=== PATIENT | female | born 1970 | race Caucasian/White ===

== ENCOUNTER 2018-04-11 20:33 | Emergency (ER) | payer MEDICAID ==
[~2018-04-11] VITALS: Ht 162.6 cm; Wt 116.0 kg
[~2018-04-11 20:33] MED LIST: CLOT15CR5 TOP; HYDR-569 PO; MYCOL15CR TP; NYST15OI14 TP
[2018-04-11 21:24] VITALS: BP 132/78
[2018-04-11] MEDS ORDERED: FLUC150T66 PO (22:51)
[2018-04-11] MEDS ORDERED: MYCOL30CR TP (22:51)
== END 2018-04-11 23:03 | disposition home or self-care (01) ==
LOC: ER 20:34
DX: B37.9 Candidiasis, unspecified (principal); M19.90 Unspecified osteoarthritis, unspecified site; Z79.899 Other long term (current) drug therapy
CPT/HCPCS: 99283

== ENCOUNTER 2018-07-20 08:39 | Emergency (ER) | payer MEDICAID ==
[~2018-07-20] VITALS: Ht 162.6 cm; Wt 118.2 kg
[~2018-07-20 08:39] MED LIST changes: +HYDR-4383 PO; -HYDR-569 PO; +MYCOL30CR TP
[2018-07-20 08:40] VITALS: BP 140/98
[2018-07-20 09:08] LABS: CLARITY,URINE CLOUDY (Clear); GLUCOSE, URINE NEGATIVE (Neg); KETONES,URINE TRACE mg/dl (Neg); LEUKOCYTE ESTERASE ,URINE TRACE (Neg); NITRITES, URINE NEGATIVE (Neg); OCCULT BLOOD,URINE SMALL (Neg); PH,URINE 5.5 (4.8-8.0); PROTEIN,URINE 30 mg/dl (Neg); UROBILINOGEN,URINE 0.2 E.U/dL (0.2-1.0)
[2018-07-20 09:09] LABS: COLOR,URINE DARK YELLOW (Yellow); UA COLLECTION TYPE CLN CATCH MIDSTREAM
[2018-07-20 09:12] LABS: URINE HCG NEGATIVE (NEG)
[2018-07-20 09:14] LABS: BACTERIA,URINE 3+ /HPF (Neg); SQUAMOUS EPITHELIAL CELL,UR MANY /LPF (FEW); WBC,URINE 50-100 /HPF (0-4)
[2018-07-20 09:15] LABS: MUCUS STRANDS MODERATE /LPF (Neg); WBC CLUMPS,URINE FEW /HPF (NEGATIVE)
[2018-07-20] MEDS ORDERED: CEPH-572 PO (09:21)
[2018-07-20] MEDS ORDERED: PHEN-824 PO (10:12)
== END 2018-07-20 09:39 | disposition home or self-care (01) ==
LOC: ER 08:39
DX: N39.0 Urinary tract infection, site not specified (principal); M19.90 Unspecified osteoarthritis, unspecified site; Z79.2 Long term (current) use of antibiotics
CPT/HCPCS: 81001; 81025; 99283

== ENCOUNTER 2018-08-06 07:15 | Emergency (ER) | payer MEDICAID ==
[~2018-08-06] VITALS: Ht 165.1 cm; Wt 118.2 kg
[~2018-08-06 07:15] MED LIST changes: +PHEN-824 PO
[2018-08-06] MEDS ORDERED: TRIA15CR62 TP (07:50)
[2018-08-06 07:58] VITALS: BP 136/95
== END 2018-08-06 08:00 | disposition home or self-care (01) ==
LOC: ER 07:16
DX: L30.9 Dermatitis, unspecified (principal); M19.90 Unspecified osteoarthritis, unspecified site; Z79.899 Other long term (current) drug therapy
CPT/HCPCS: 99283

== ENCOUNTER 2019-11-05 23:33 | Emergency (ER) | payer MEDICAID ==
[~2019-11-05] VITALS: Ht 162.6 cm; Wt 117.6 kg
[2019-11-05 23:39] VITALS: BP 111/75
[2019-11-06] MEDS ORDERED: KEN0.1O TP (00:25)
== END 2019-11-06 00:58 | disposition home or self-care (01) ==
LOC: ER 23:34
DX: R21 Rash and other nonspecific skin eruption (principal); L29.9 Pruritus, unspecified; M19.90 Unspecified osteoarthritis, unspecified site; Z87.442 Personal history of urinary calculi; Z87.440 Personal history of urinary (tract) infections; Z79.2 Long term (current) use of antibiotics; Z79.899 Other long term (current) drug therapy
CPT/HCPCS: 99283

== ENCOUNTER 2020-07-17 09:44 | Emergency (ER) | payer MEDICAID ==
[~2020-07-17] VITALS: Ht 162.6 cm; Wt 108.6 kg
[~2020-07-17 09:44] MED LIST changes: +CLOT15CR35 TOP; -CLOT15CR5 TOP
[2020-07-17 10:41] LABS: URINE HCG NEGATIVE (NEG)
[2020-07-17 10:44] LABS: CLARITY,URINE SLIGHTLY CLOUDY (Clear); COLOR,URINE YELLOW (Yellow); GLUCOSE, URINE NEGATIVE (Neg); KETONES,URINE 15 mg/dl (Neg); LEUKOCYTE ESTERASE ,URINE NEGATIVE (Neg); NITRITES, URINE NEGATIVE (Neg); OCCULT BLOOD,URINE NEGATIVE (Neg); PH,URINE 5.5 (4.8-8.0); PROTEIN,URINE NEGATIVE (Neg); UROBILINOGEN,URINE 0.2 E.U/dL (0.2-1.0)
[2020-07-17 10:47] LABS: UA COLLECTION TYPE CLN CATCH MIDSTREAM
[2020-07-17 10:48] LABS: BACTERIA,URINE NONE SEEN /HPF (Neg); MUCUS STRANDS MODERATE /LPF (Neg); RBC,URINE 0-2 /HPF (0-2); SQUAMOUS EPITHELIAL CELL,UR MODERATE /LPF (FEW); WBC,URINE 0-4 /HPF (0-4)
[2020-07-17 11:12] LABS: BASOPHILS % (AUTO) 0.6 % (0-1); EOSINOPHILS # (AUTO) 0.1 X10'3 (0-0.9); EOSINOPHILS % (AUTO) 1.3 % (0-6); HEMATOCRIT 41.2 % (35.0-45.0); HEMOGLOBIN 14.1 g/dl (12.0-16.0); LYMPHOCYTES # (AUTO) 1.4 X10'3 (1.1-4.8); LYMPHOCYTES % (AUTO) 19.6 % (21-51); MEAN CORPUSCULAR HEMOGLOBIN 34.9 PG (27.0-31.0); MEAN CORPUSCULAR HGB CONC 34.3 g/dL (33.0-36.5); MEAN CORPUSCULAR VOLUME 101.8 FL (78-98); MEAN PLATELET VOLUME 9.3 FL (7.4-10.4); MONOCYTES # (AUTO) 0.6 X10'3 (0-0.9); MONOCYTES % (AUTO) 8.2 % (2-12); NEUTROPHILS # (AUTO) 4.9 X10'3 (1.8-7.7); NEUTROPHILS % (AUTO) 70.3 % (42-75); PLATELET COUNT 237 X10'3 (140-440); RED BLOOD COUNT 4.05 X10'6 (4.20-5.60); RED CELL DISTRIBUTION WIDTH 13.1 % (11.5-14.5); WHITE BLOOD COUNT 6.9 X10'3 (4.5-11.0)
[2020-07-17 11:29] LABS: ALANINE AMINOTRANSFERASE 40 U/L (12-78); ALBUMIN 3.5 G/DL (3.4-5.0); ALBUMIN/GLOBULIN RATIO 1.1 (1.1-1.5); ALKALINE PHOSPHATASE 67 IU/L (46-116); ANION GAP 6 (8-16); ASPARTATE AMINO TRANSFERASE 21 U/L (10-37); BILIRUBIN,TOTAL 0.3 MG/DL (0.1-1.0); BLOOD UREA NITROGEN 16 MG/DL (7-18); BUN/CREATININE RATIO 19.5 (6.6-38.0); CALCIUM 8.5 MG/DL (8.5-10.1); CHLORIDE 107 MMOL/L (99-107); CREATININE 0.82 MG/DL (0.40-0.90); GLUCOSE 84 MG/DL (70-104); LIPASE 76 U/L (73-393); POTASSIUM 4.2 MMOL/L (3.5-5.1); SODIUM 141 MMOL/L (135-145); TOTAL CARBON DIOXIDE 27.9 MMOL/L (24-32); TOTAL PROTEIN 6.7 G/DL (6.4-8.2); eGFR 75 ML/MIN
[2020-07-17 12:23] VITALS: BP 128/85
== END 2020-07-17 12:25 | disposition home or self-care (01) ==
LOC: ER 09:45
DX: K42.9 Umbilical hernia without obstruction or gangrene (principal); M19.90 Unspecified osteoarthritis, unspecified site; Z87.442 Personal history of urinary calculi; Z79.899 Other long term (current) drug therapy
CPT/HCPCS: 36415; 74176; 80053; 81001; 81025; 83605; 83690; 85025; 99284

== ENCOUNTER 2021-09-04 12:51 | Emergency (ER) | payer MEDICAID ==
[~2021-09-04] VITALS: Ht 162.6 cm; Wt 109.0 kg
[2021-09-04 13:07] VITALS: BP 115/71
[2021-09-04] MEDS ORDERED: ketorolac trometh. 30mg/ml inj. IV ONE (14:30)
[2021-09-04] MEDS ORDERED: IBUP-1984 PO (14:33)
--- NOTE | 2021-09-04 14:56 | NUR ---
Pt given and understands d/c instructions. Ambulatory with a steady gait.
== END 2021-09-04 14:57 | disposition home or self-care (01) ==
LOC: ER 12:51
DX: M25.531 Pain in right wrist (principal); Z87.442 Personal history of urinary calculi; Z79.899 Other long term (current) drug therapy
CPT/HCPCS: 73090; 73110; 96374; 99284; J1885

== ENCOUNTER 2021-10-11 22:34 | Emergency (ER) | payer MEDICAID ==
[~2021-10-11] VITALS: Ht 162.6 cm; Wt 105.0 kg
[2021-10-11 23:33] LABS: BASOPHILS % (AUTO) 0.4 % (0-1); EOSINOPHILS % (AUTO) 0.3 % (0-6); HEMATOCRIT 41.7 % (35.0-45.0); HEMOGLOBIN 14.5 g/dl (12.0-16.0); LYMPHOCYTES % (AUTO) 11.6 % (21-51); MEAN CORPUSCULAR HEMOGLOBIN 34.1 PG (27.0-31.0); MEAN CORPUSCULAR HGB CONC 34.8 g/dL (33.0-36.5); MEAN PLATELET VOLUME 9.4 FL (7.4-10.4); MONOCYTES # (AUTO) 0.6 X10'3 (0-0.9); NEUTROPHILS # (AUTO) 6.6 X10'3 (1.8-7.7); NEUTROPHILS % (AUTO) 80.7 % (42-75); PLATELET COUNT 197 X10'3 (140-440); RED BLOOD COUNT 4.26 X10'6 (4.20-5.60); RED CELL DISTRIBUTION WIDTH 13.2 % (11.5-14.5); WHITE BLOOD COUNT 8.2 X10'3 (4.5-11.0)
[2021-10-11 23:47] LABS: ALANINE AMINOTRANSFERASE 21 U/L (12-78); ALBUMIN 3.6 G/DL (3.4-5.0); ALBUMIN/GLOBULIN RATIO 1.2 (1.1-1.5); ALKALINE PHOSPHATASE 62 IU/L (46-116); ANION GAP 12 (8-16); ASPARTATE AMINO TRANSFERASE 11 U/L (10-37); BILIRUBIN,TOTAL 0.4 MG/DL (0.1-1.0); BLOOD UREA NITROGEN 21 MG/DL (7-18); BUN/CREATININE RATIO 27.6 (6.6-38.0); CALCIUM 8.6 MG/DL (8.5-10.1); CHLORIDE 103 MMOL/L (99-107); CREATININE 0.76 MG/DL (0.40-0.90); GLUCOSE 117 MG/DL (70-104); LIPASE 68 U/L (73-393); POTASSIUM 4.6 MMOL/L (3.5-5.1); SODIUM 138 MMOL/L (135-145); TOTAL CARBON DIOXIDE 23.5 MMOL/L (24-32); TOTAL PROTEIN 6.7 G/DL (6.4-8.2); eGFR 81 ML/MIN
[2021-10-11 23:55] LABS: CLARITY,URINE CLEAR (Clear); COLOR,URINE YELLOW (Yellow); GLUCOSE, URINE NEGATIVE (Neg); KETONES,URINE NEGATIVE (Neg); LEUKOCYTE ESTERASE ,URINE NEGATIVE (Neg); NITRITES, URINE NEGATIVE (Neg); OCCULT BLOOD,URINE NEGATIVE (Neg); PH,URINE 5.5 (4.8-8.0); PROTEIN,URINE NEGATIVE (Neg); UROBILINOGEN,URINE 0.2 E.U/dL (0.2-1.0)
[2021-10-11 23:57] LABS: URINE HCG NEGATIVE (NEG)
[2021-10-12 00:08] LABS: UA COLLECTION TYPE CLN CATCH MIDSTREAM
[2021-10-12] MEDS ORDERED: ondansetron/PF 4mg/2ml inj IV ONE (00:30)
[2021-10-12] MEDS ORDERED: normal saline 1000ml 1,000 ML IV ONE (00:30)
[2021-10-12] MEDS ORDERED: ONDA4TAB12 PO (01:09)
[2021-10-12] MEDS ORDERED: proCHLORperazine 10 MG/2 ml inj IV ONE ×2 (01:20→01:25)
[2021-10-12 03:10] VITALS: BP 122/74
== END 2021-10-12 03:12 | disposition home or self-care (01) ==
LOC: ER 22:36
DX: K92.1 Melena (principal); R19.7 Diarrhea, unspecified; R11.2 Nausea with vomiting, unspecified; R10.84 Generalized abdominal pain; M19.90 Unspecified osteoarthritis, unspecified site; Z87.442 Personal history of urinary calculi; Z87.440 Personal history of urinary (tract) infections; Z79.899 Other long term (current) drug therapy
CPT/HCPCS: 36415; 80053; 81003; 81025; 83690; 85025; 96361; 96374; 96375; 99285; J0780; J2405; J7030

== ENCOUNTER 2022-05-31 01:22 | Emergency (ER) | payer MEDICAID ==
[~2022-05-31] VITALS: Ht 162.6 cm; Wt 95.5 kg
[~2022-05-31 01:22] MED LIST changes: -MYCOL15CR TP; -MYCOL30CR TP; +NYST15CR37 TP; +NYST30CR35 TP; +ONDA4TAB12 PO
[2022-05-31 01:33] VITALS: BP 108/66
[2022-05-31] MEDS ORDERED: ketorolac trometh inj. 60 MG/2 ML VIAL IM ONE (04:40)
== END 2022-05-31 04:56 | disposition home or self-care (01) ==
LOC: ER 01:23
DX: M25.562 Pain in left knee (principal); M19.90 Unspecified osteoarthritis, unspecified site; Z87.442 Personal history of urinary calculi; Z87.440 Personal history of urinary (tract) infections; Z79.2 Long term (current) use of antibiotics; Z79.899 Other long term (current) drug therapy
CPT/HCPCS: 96372; 99283; J1885

== ENCOUNTER 2022-09-03 08:35 | Emergency (ER) | payer MEDICAID ==
[~2022-09-03] VITALS: Ht 162.6 cm; Wt 95.5 kg
[2022-09-03 09:04] VITALS: BP 125/99
[2022-09-03] MEDS ORDERED: AMOX875T10 PO ×3 (10:04→12:10)
== END 2022-09-03 10:30 | disposition home or self-care (01) ==
LOC: ER 08:35
DX: H66.93 Otitis media, unspecified, bilateral (principal); R09.89 Other specified symptoms and signs involving the circulatory and respiratory systems; R51.9 Headache, unspecified; M19.90 Unspecified osteoarthritis, unspecified site
CPT/HCPCS: 99283

== ENCOUNTER 2022-12-26 22:21 | Emergency (ER) | payer MEDICAID ==
[~2022-12-26] VITALS: Ht 162.6 cm; Wt 100.0 kg
[~2022-12-26 22:21] MED LIST changes: +AMOX875T10 PO
[2022-12-26 22:23] VITALS: BP 144/98
[2022-12-26] MEDS ORDERED: amox tr/potassium clavulanate 875/125mg TAB PO ONE (22:50)
[2022-12-26] MEDS ORDERED: predniSONE 20 mg tablet PO ONE (22:50)
[2022-12-26] MEDS ORDERED: AMOX-117 PO (23:02)
[2022-12-26] MEDS ORDERED: PRED20TA PO (23:02)
[2022-12-26] MEDS ORDERED: DIPH25TA62 PO (23:03)
== END 2022-12-26 23:14 | disposition home or self-care (01) ==
LOC: ER 22:21
DX: H01.005 Unspecified blepharitis left lower eyelid (principal); H01.002 Unspecified blepharitis right lower eyelid; Z87.442 Personal history of urinary calculi; Z79.899 Other long term (current) drug therapy; Z79.1 Long term (current) use of non-steroidal anti-inflammatories (NSAID); Z79.2 Long term (current) use of antibiotics
CPT/HCPCS: 99283; J7512

== ENCOUNTER 2023-01-12 00:38 | Emergency (ER) | payer MEDICAID ==
[~2023-01-12] VITALS: Ht 162.6 cm; Wt 100.0 kg
[~2023-01-12 00:38] MED LIST changes: +DIPH25TA62 PO; +PRED20TA PO
[2023-01-12 00:39] VITALS: BP 114/72
[2023-01-12] MEDS ORDERED: clobetasol propionate ointment 15gm TP STA (02:56)
== END 2023-01-12 03:09 | disposition home or self-care (01) ==
LOC: ER 00:38
DX: R21 Rash and other nonspecific skin eruption (principal); M19.90 Unspecified osteoarthritis, unspecified site
CPT/HCPCS: 99282

== ENCOUNTER 2023-02-17 01:39 | Emergency (ER) | payer BC, MEDICAID ==
[~2023-02-17] VITALS: Ht 162.6 cm; Wt 106.0 kg
[~2023-02-17 01:39] MED LIST changes: -PRED20TA PO
[2023-02-17 01:41] VITALS: BP 125/91; PULSE 82; RESP 18; TEMP 97; O2SAT 98
== END 2023-02-17 03:35 | disposition left against medical advice (07) ==
LOC: ER 01:39
DX: R21 Rash and other nonspecific skin eruption (principal); K13.0 Diseases of lips; Z53.21 Procedure and treatment not carried out due to patient leaving prior to being seen by health care provider
CPT/HCPCS: 99281

== ENCOUNTER 2024-06-02 23:14 | Emergency (ER) | payer BC, MEDICAID ==
[~2024-06-02] VITALS: Ht 162.6 cm; Wt 124.7 kg
[~2024-06-02 23:14] MED LIST changes: +ONDA-243 PO; -ONDA4TAB12 PO
[2024-06-02 23:17] VITALS: BP 136/98; PULSE 100; RESP 16; TEMP 98.4; O2SAT 97
[2024-06-03] MEDS ORDERED: CEPH-585 PO (00:09)
[2024-06-03] MEDS ORDERED: SULF1TAB49 PO (00:09)
[2024-06-03] MEDS ORDERED: DIF150T PO (00:09)
== END 2024-06-03 00:33 | disposition home or self-care (01) ==
LOC: ER 23:15
DX: L03.111 Cellulitis of right axilla (principal); M19.90 Unspecified osteoarthritis, unspecified site; Z79.2 Long term (current) use of antibiotics; Z79.899 Other long term (current) drug therapy; Z87.440 Personal history of urinary (tract) infections
CPT/HCPCS: 99284; A6258; A6449

== ENCOUNTER 2024-06-07 18:48 | Emergency (ER) | payer BC ==
[~2024-06-07] VITALS: Ht 162.6 cm; Wt 113.6 kg
[~2024-06-07 18:48] MED LIST changes: +CEPH-585 PO; +SULF1TAB49 PO
[2024-06-07] MEDS: VANCOMYCIN 1.75GM/WATER FOR INJ (PEG) 350 ML IVPB IV ONE (20:56)
[2024-06-07 22:46] VITALS: BP 93/50; PULSE 68; RESP 16; TEMP 98.7; O2SAT 98
[2024-06-08] MEDS: acetaminophen 325mg tablet PO ONE (00:12)
[2024-06-08] MEDS: ibuprofen tablet 400 MG TABLET PO ONE (00:13)
== END 2024-06-08 01:24 | disposition home or self-care (01) ==
LOC: ER 18:49
DX: L03.111 Cellulitis of right axilla (principal); L02.411 Cutaneous abscess of right axilla; M19.90 Unspecified osteoarthritis, unspecified site; Z79.899 Other long term (current) drug therapy; Z79.2 Long term (current) use of antibiotics; Z87.440 Personal history of urinary (tract) infections
CPT/HCPCS: 96365; 96366; 96376; 99284; J3372; J7050

== ENCOUNTER 2024-06-23 23:09 | Emergency (ER) | payer BC ==
[~2024-06-23] VITALS: Ht 162.6 cm; Wt 109.1 kg
[~2024-06-23 23:09] MED LIST changes: -CEPH-585 PO; -SULF1TAB49 PO
[2024-06-23 23:10] VITALS: BP 150/92; PULSE 95; RESP 18; O2SAT 96
[2024-06-23] MEDS ORDERED: RIFA300C65 PO (23:13)
[2024-06-23] MEDS ORDERED: AMOX-580 PO (23:13)
[2024-06-23] MEDS: amox tr/potassium clavulanate 875/125mg TAB PO ONE (23:24)
[2024-06-23] MEDS: rifampin 300mg capsule PO STA (23:24)
[2024-06-23 23:36] VITALS: TEMP 98.8
== END 2024-06-23 23:38 | disposition home or self-care (01) ==
LOC: ER 23:10
DX: S61.032A Puncture wound without foreign body of left thumb without damage to nail, initial encounter (principal); L03.012 Cellulitis of left finger; W55.01XA Bitten by cat, initial encounter; Y93.89 Activity, other specified; Y92.89 Other specified places as the place of occurrence of the external cause; Y99.8 Other external cause status
CPT/HCPCS: 99283

== ENCOUNTER 2024-08-12 10:13 | Outpatient (CLI) | payer BC ==
[~2024-08-12 10:13] MED LIST changes: +RIFA300C65 PO
== END 2024-08-12 23:59 | disposition home or self-care (01) ==
LOC: RAD 10:13
PROVIDERS: ATTEND Student in an Organized Health Care Education/Training Program
DX: M17.11 Unilateral primary osteoarthritis, right knee (principal); M25.561 Pain in right knee
CPT/HCPCS: 73560

== ENCOUNTER 2024-08-24 23:21 | Emergency (ER) | payer BC ==
[~2024-08-24] VITALS: Ht 162.6 cm; Wt 118.2 kg
[2024-08-24] MEDS: acetaminophen 325mg tablet PO ONE (23:36)
[2024-08-24] MEDS: ketorolac trometh 15mg/ml vial 15 MG/ML ML IM ONE (23:36)
[2024-08-24 23:44] VITALS: BP 135/80; PULSE 109; RESP 18; TEMP 98.6; O2SAT 98
[2024-08-25] MEDS ORDERED: PANT40TA54 (23:38)
[2024-08-25] MEDS ORDERED: IBUP-1986 (23:38)
[2024-08-25] MEDS ORDERED: HYDR-3965 PO (23:50)
[2024-08-25] MEDS ORDERED: ONDA-245 PO (23:50)
== END 2024-08-24 23:46 | disposition home or self-care (01) ==
LOC: ER 23:22 → EEVIPCON 23:22 → ER 23:46
DX: M25.561 Pain in right knee (principal); M19.90 Unspecified osteoarthritis, unspecified site; Z87.440 Personal history of urinary (tract) infections; W19.XXXA Unspecified fall, initial encounter; Y93.89 Activity, other specified; Y92.89 Other specified places as the place of occurrence of the external cause; Y99.8 Other external cause status
CPT/HCPCS: 96372; 99283; J1885

== ENCOUNTER 2024-08-25 22:11 | Emergency (ER) | payer BC ==
[~2024-08-25] VITALS: Ht 162.6 cm; Wt 118.2 kg
[2024-08-25] MEDS: ondansetron 4mg rapidly disintigrating tab PO ONE (22:39)
[2024-08-25] MEDS: HYDROcodone/acetaminophen 5mg/325mg tablet PO ONE (22:39)
[2024-08-25] MEDS ORDERED: IBUP-1986 (23:38)
[2024-08-25] MEDS ORDERED: PANT40TA54 (23:38)
[2024-08-25] MEDS ORDERED: HYDR-3965 PO (23:50)
[2024-08-25] MEDS ORDERED: ONDA-245 PO (23:50)
[2024-08-26 00:32] VITALS: BP 135/74; PULSE 86; RESP 18; TEMP 98.7; O2SAT 99
== END 2024-08-26 00:33 | disposition home or self-care (01) ==
LOC: ER 22:12
DX: M25.561 Pain in right knee (principal); Z79.899 Other long term (current) drug therapy; Z87.442 Personal history of urinary calculi
CPT/HCPCS: 73721; 93971; 99284